=== PATIENT | male | born 1970 | race Caucasian/White ===

== ENCOUNTER 2019-04-28 19:27 | Emergency (ER) | payer OTHER ==
[~2019-04-28] VITALS: Ht 182.9 cm; Wt 74.8 kg
[2019-04-28] MEDS ORDERED: Norco 5-325 Ta1 EACH PO (21:30)
[2019-04-28] MEDS ORDERED: CYCL10 PO (21:30)
== END 2019-04-28 21:41 | disposition home or self-care (01) ==
LOC: ER 19:27
DX: S22.42XA Multiple fractures of ribs, left side, initial encounter for closed fracture (principal); Z91.030 Bee allergy status; W13.1XXA Fall from, out of or through bridge, initial encounter
CPT/HCPCS: 71046; 99283-25; A9270; A9270-GY